=== PATIENT | male | born 1990 | race Caucasian/White ===

== ENCOUNTER 2024-11-08 15:00 | Emergency (ER) | payer OTHER, SELFPAY ==
[2024-11-08 15:05] VITALS: BP 132/81
--- NOTE | 2024-11-08 15:54 | ED.GENMED ---
History of Present Illness
<Glenis Howard PA-C - Last Filed: 11/08/24 21:38>
General
Chief Complaint: Cold/Flu/URI Symptoms
Source: patient
Exam Limitations: none
Time Seen by Provider: 11/08/24 15:40
History of Present Illness
History of Present Illness:
34yoM with no significant past medical history presenting with his for evaluation of a headache. Symptoms began this morning around 5am when he woke up. He reports sharp pain in his frontal region. He states he has never had a headache this
bad before. He initially thought he had a sinus infection although he is not having any nasal congestion. He is also experiencing nausea and body aches. Tmax 99. He was seen at urgent care and had negative COVID/flu testing. He was given
Tylenol and Zofran with improvement and now headache is a 7/10 in severity. His child is currently sick with congestion. Of note, patient was experiencing some L periorbital swelling yesterday which has resolved. He denies any photophobia, neck
pain, neck stiffness, vomiting, rashes. No recent travel.
Phy Exam
<Glenis Howard PA-C - Last Filed: 11/08/24 21:38>
General Physical Exam
General Presentation: well appearing and no apparent distress
General Skin: warm and dry
General Habitus: normal
General Mental: alert
ENT Exam
ENT Exam: TM's normal, pharynx normal, neck supple, normocephalic and other (No meningismus )
Eye Exam
Eye Exam: PERRL and conjunctiva normal
Cardiovascular Exam
Cardiovascular Exam: regular rate/rhythm
Pulmonary Exam
Pulmonary Exam: lungs clear, no respiratory distress, no rales, no crackles, no rhonchi and no wheezing
Neurological Exam
Neurological Exam: alert
[place] Coma Scale
Eye Opening: Spontaneous
Verbal Response: Oriented
Motor Response: Obeys Commands
GCS Total Score: 15
Skin Exam
Skin Exam: normal color and warm/dry
Psychiatric Exam
Psychiatric Exam: normal mood/affect
<Suleman Ho PA-C - Last Filed: 11/08/24 20:28>
[place] Coma Scale
GCS Total Score: 15
Course
<Glenis Howard PA-C - Last Filed: 11/08/24 21:38>
Orders/Labs/Results
Orders:
Orders
11/08/24 15:52
CT Head W/o Iv Contrast Urgent
Comment:
Reason For Exam: acute headache
0.9% Sodium Chloride 1000 ml [Nss] 1,000 ml IV BOLUS
Diphenhydramine [Benadryl] 25 mg IV NOW STA
Metoclopramide [Reglan] 10 mg IV NOW STA
11/08/24 16:08
COVID-19 Antigen Urgent
Source: Nasal Swab
Complete Blood Count/With Diff Urgent
Comprehensive Metabolic Panel Urgent
11/08/24 20:22
Ketorolac [Toradol] 15 mg IV NOW STA
Abnormal Lab Results
11/08/24
16:08
RBC 4.62 L 10^6/uL
(4.70-6.10)
MCH 31.6 H pg
(27.0-31.0)
Total Bilirubin 1.5 H mg/dl
(0.2-1.3)
11/08/24 16:08
11/08/24 16:08
Vital Signs
Initial and Last Documented VS:
Initial Vital Signs
Temp Pulse Resp BP Pulse Ox
98.1 F 84 18 132/81 99
11/08/24 15:05 11/08/24 15:05 11/08/24 15:05 11/08/24 15:05 11/08/24 15:05
Last Documented Vital Signs
Temp Pulse Resp BP Pulse Ox
98.8 F 64 18 108/78 99
11/08/24 19:50 11/08/24 19:50 11/08/24 19:50 11/08/24 19:50 11/08/24 19:50
<Suleman Ho PA-C - Last Filed: 11/08/24 20:28>
Orders/Labs/Results
Orders:
Orders
11/08/24 15:52
CT Head W/o Iv Contrast Urgent
Comment:
Reason For Exam: acute headache
0.9% Sodium Chloride 1000 ml [Nss] 1,000 ml IV BOLUS
Diphenhydramine [Benadryl] 25 mg IV NOW STA
Metoclopramide [Reglan] 10 mg IV NOW STA
11/08/24 16:08
COVID-19 Antigen Urgent
Source: Nasal Swab
Complete Blood Count/With Diff Urgent
Comprehensive Metabolic Panel Urgent
11/08/24 20:22
Ketorolac [Toradol] 15 mg IV NOW STA
Abnormal Lab Results
11/08/24
16:08
RBC 4.62 L 10^6/uL
(4.70-6.10)
MCH 31.6 H pg
(27.0-31.0)
Total Bilirubin 1.5 H mg/dl
(0.2-1.3)
11/08/24 16:08
11/08/24 16:08
Vital Signs
Initial and Last Documented VS:
Initial Vital Signs
Temp Pulse Resp BP Pulse Ox
98.1 F 84 18 132/81 99
11/08/24 15:05 11/08/24 15:05 11/08/24 15:05 11/08/24 15:05 11/08/24 15:05
Last Documented Vital Signs
Temp Pulse Resp BP Pulse Ox
98.8 F 64 18 108/78 99
11/08/24 19:50 11/08/24 19:50 11/08/24 19:50 11/08/24 19:50 11/08/24 19:50
<Glenis Howard PA-C - Last Filed: 11/08/24 21:38>
MDM/Problems Addressed
Differential Diagnosis Includes:
34yoM here with a headache and body aches that started this morning. States he has never had this bad of headache before. +Sick contacts. COVID/flu testing negative at urgent care. VSS. He is non-toxic appearing on exam. He is awake, alert, with a
GCS of 15. He denies any neck pain and has no nuchal ridigity on exam. Differential diagnosis includes but is not limited to: tension headache, sinusitis, migraine, consider subarachoid hemorrhage, doubt meningitis
Initial ED plan: Check CBC, CMP, COVID swab, and CT head. IV Reglan, Benadryl, and fluid bolus ordered for symptoms.
Final assessment: Labs unremarkable including normal white count. COVID testing negative. Headache improved to 6/10 in severity on reassessment. Case signed out to Viral Ho PA-C awaiting CT results.
<Glenis Howard PA-C - Last Filed: 11/08/24 21:38>
*Pulse Oximetry
SaO2: 99
Oxygen Mode of Delivery: Room air
<Suleman Ho PA-C - Last Filed: 11/08/24 20:28>
*Pulse Oximetry
Patient hypoxic: no
*Critical Care Note
Total Time (30-74mins, 75-104mins- exclusive of procedures): Not Applicable
<Suleman Ho PA-C - Last Filed: 11/08/24 20:28>
Update Note
Update Note:
CTH unremarkable; discuss supportive care with pt. Given toradol for h/a relief prior to d/c
ED Attending Note
<Glenis Howard PA-C - Last Filed: 11/08/24 21:38>
-
Portions of this chart may have been created with voice recognition software.� Occasional wrong word or��sound alike� substitutions may have occurred due to the inherent limitations of voice recognition software.
Discharge Plan
Departure
Patient Disposition: Home (Routine Discharge)
Date of Disposition: 11/08/24
Time of Disposition: 20:20
Patient with high blood pressure during this ER visit?: No
Discharge Problem:
Headache
Instructions: Headache, Adult (DC)
Referrals:
Iban Ford MD [Family Provider, Internal Medicine]
Interventions
Interventions:
*Risk Screen - Suicide Last Done: 11/08/24 15:08
*General Assessment Last Done: 11/08/24 16:05
*Neglect/Abuse Screening Last Done: 11/08/24 16:05
*ED- Fall Risk Assessment Last Done: 11/08/24 16:05
*ED COVID-19 Vaccine History Last Done: 11/08/24 16:05
*Nursing Disposition Last Done: 11/08/24 20:50
ED- Neurological Assessment Last Done: 11/08/24 16:05
ED- Pulmonary Assessment Last Done: 11/08/24 16:05
Discharge Date and Time
Discharge Date/Time: 11/08/24 20:50
Print Language: LAO
[2024-11-08 16:01] VITALS: BMI 24.5
[2024-11-08] MEDS: NSS 1000 IV (16:11)
[2024-11-08] MEDS: REGLAN 10 MG IV (16:12)
[2024-11-08] MEDS: BENADRYL 25 MG IV (16:12)
[2024-11-08 16:19] LABS: Hematocrit 41.4 % (39.0-52.0); Hemoglobin 14.6 g/dL (13.0-18.0); Mean Corp Hgb Conc. 35.3 g/dL (33.0-37.0); Mean Corpuscular Volume 89.6 fL (80.0-94.0); Nucleated Red Blood Cells % 0 % (-); Platelet Count 282 10^3/uL (130-400); Red Cell Dist. Width 12.3 % (11.5-14.5)
[2024-11-08 16:48] LABS: ALT (SGPT) 25 U/L (0-50); AST (SGOT) 24 U/L (17-59); Albumin 4.6 g/dl (3.5-5.0); Alkaline Phosphatase 69 U/L (38-126); Blood Urea Nitrogen 15 mg/dl (9-20); Calcium 9.5 mg/dl (8.4-10.2); Carbon Dioxide 27 mmol/L (22-30); Chloride 103 mmol/L (98-107); Estimated Creatinine Clearance 103 ml/min; Glucose 94 mg/dl (70-99); Potassium 4.4 mmol/L (3.5-5.1); Sodium 136 mmol/L (135-145); Total Protein 7.4 g/dl (6.3-8.2); eGFR > 60.00
[2024-11-08 17:07] LABS: COVID-19 Antigen Negative (Negative)
[2024-11-08 19:50] VITALS: BP 108/78
[2024-11-08] MEDS: TORADOL 15 MG IV (20:35)
== END 2024-11-08 20:50 | disposition home or self-care (01) ==
LOC: EMR 15:00
PROVIDERS: Physician Assistant; EMERGENCY PHYSICIAN Emergency Medicine; FAMILY PHYSICIAN Internal Medicine
DX: R51.9 Headache, unspecified (principal)
CPT/HCPCS: 99284; 96374; 96375; 96361; 70450; 80053; 85025; 87811